=== PATIENT | male | born 1955 | race African-American/Black ===

== ENCOUNTER 2017-08-28 16:16 | Emergency (ER) | payer OTHER ==
[~2017-08-28 16:16] MED LIST: AMIODARONE 150 MG INJ; ATROPINE 1 MG/10 ML SYRINGE; CA CHLORIDE 10% 10 ML SYRINGE; DEXTROSE 50% 50 ML SYRINGE; EPINEPHrine 0.1 MG/ML SYG; NA BICARBONATE 8.4% 50 ML SYG
== END 2017-08-28 20:11 | disposition expired ==
LOC: E/R 16:16
DX: I46.9 Cardiac arrest, cause unspecified (principal)
CPT/HCPCS: 31500; 92950; 99285-25